=== PATIENT | male | born 1940 | race African-American/Black ===

== ENCOUNTER 2022-05-15 15:51 | Emergency (ER) | payer OTHER ==
[~2022-05-15] VITALS: Ht 172.7 cm; Wt 73.0 kg
[2022-05-15] MEDS ORDERED: SODIUM CHLORIDE 0.9% 1,000 ML IV ONE (16:30)
[2022-05-15] MEDS ORDERED: ASPIRIN 81MG TABLET PO ONE (16:30)
[2022-05-15] MEDS ORDERED: BACITRACIN ZINC OINT UDPKT TOP ONE (16:45)
[2022-05-15 17:01] LABS: CHLORIDE 103 mEq/L (98-107)
[2022-05-15 18:00] LABS: HEMATOCRIT. 28.8 % (42.0-52.0); MEAN CORPUSCULAR HEMOGLOBIN 31.8 pg (28.0-32.0); MEAN CORPUSCULAR VOLUME 91.5 fL (80.0-94.0); MEAN PLATELET VOLUME 8.2 fl (7.4-10.4); PLATELET 222 x1000/uL (130-400); RED BLOOD CELL COUNT 3.15 mill/uL (4.7-6.1); RED CELL DISTRIBUTION WIDTH 12.7 % (11.6-14.6)
[2022-05-15 21:10] LABS: PLATELET ESTIMATE NORMAL
[2022-05-15 21:13] VITALS: BP 135/60
== END 2022-05-15 21:18 | disposition short-term general hospital (02) ==
LOC: ER 15:51
DX: S50.311A Abrasion of right elbow, initial encounter (principal); R55 Syncope and collapse; W18.39XA Other fall on same level, initial encounter; Y93.89 Activity, other specified; Y92.89 Other specified places as the place of occurrence of the external cause; Y99.8 Other external cause status; Z20.822 Contact with and (suspected) exposure to COVID-19; I10 Essential (primary) hypertension
CPT/HCPCS: 36415; 71045; 73080; 80053; 83880; 84484; 85025; 87426; 93005; 96360; 99285; C9803; J7030